=== PATIENT | female | born 1945 | race Caucasian/White ===

== ENCOUNTER → 2020-09-19 | Outpatient (CLI) | payer MEDICARE ==
--- NOTE | 2020-09-19 20:57 | RAD ---
Exam: Chest 2 views INDICATION: Cough TECHNIQUE: Frontal and lateral views the chest Comparisons: None FINDINGS: The cardiomediastinal silhouette and pulmonary vessels are within normal limits. Strandy left basilar airspace disease. No pleural effusion. IMPRESSION: Strandy left basilar airspace disease may relate to atelectasis or developing consolidative process. Electronically signed by: Angela Avila MD (09/19/2020 8:55 PM) [place]
== END ==
LOC: DXRAD 20:32
PROVIDERS: ATTEND Nurse Practitioner Family
DX: R05 Cough (principal)
CPT/HCPCS: 71046